=== PATIENT | female | born 1990 ===

== ENCOUNTER 2018-03-24 07:43 | Outpatient (CLI) | payer OTHER | END 2018-03-24 07:48 | disposition home or self-care (01) | LOC: LAB 07:43 | DX: I10 Essential (primary) hypertension (principal); E11.9 Type 2 diabetes mellitus without complications; E03.8 Other specified hypothyroidism; E78.00 Pure hypercholesterolemia, unspecified; E55.9 Vitamin D deficiency, unspecified ==

== ENCOUNTER → 2018-03-24 | Outpatient (CLI) | payer OTHER ==
[~2018-03-24] MED LIST: [UNRECOGNIZED DRUG - REMARK]
== END | disposition home or self-care (01) ==
LOC: NUCLEAR 08:52
DX: I10 Essential (primary) hypertension (principal)